=== PATIENT | female | born 1965 | race Caucasian/White ===

== ENCOUNTER 2018-01-26 10:16 | Emergency (ER) | payer OTHER ==
[~2018-01-26] VITALS: Ht 160 cm; Wt 61.2 kg
[~2018-01-26 10:16] MED LIST: ATEN50TA8 PO; CANA100T PO; LOVA20TA8 PO; METF1000 PO
[2018-01-26 10:23] VITALS: BP 167/79
--- NOTE | 2018-01-26 10:33 | NUR ---
Patient ambulated to ER bed 2
--- NOTE | 2018-01-26 10:44 | NUR ---
PATIENT PRESENTS TO ED WITH the chief c/o vaginal bleeding . PT STATES SHE WAS TAKING ELIQUIS FOR BLOOD CLOT ON LEFT LEG. SHE STARTED BLEEDING TWO DAYS AGO AND FEELING WEAK NOW. DENIES N/V/D; SKIN IS PINK/WARM/DRY; AAOX4 WITH EVEN AND STEADY GAIT; LUNGS CLEAR BL; HR EVEN AND REGULAR; PT DENIES ANY FEVER, CP, SOB, OR COUGH AT THIS TIME; PATIENT STATES PAIN OF 0/10 AT THIS TIME; VSS; PATIENT POSITIONED FOR COMFORT; HOB ELEVATED; BEDRAILS UP X2; BED DOWN. ER MD MADE AWARE OF PT STATUS.
[2018-01-26] MEDS ORDERED: NACL 0.9% 1,000 ML IV ONE (11:20)
--- NOTE | 2018-01-26 11:28 | NUR ---
US AT BEDSIDE.
[2018-01-26 12:19] LABS: BASOPHILS % (AUTO) 0.7 % (0.0-2.0); EOSINOPHILS # (AUTO) 0.1 K/uL (0-0.4); HEMATOCRIT 28.1 % (36-48); HEMOGLOBIN 9.6 g/dL (12.0-16.0); LYMPHOCYTES # (AUTO) 1.6 K/uL (2.5-16.5); LYMPHOCYTES % (AUTO) 22.3 % (20.5-51.1); MEAN CORPUSCULAR HEMOGLOBIN 32 pg (27-31); MEAN CORPUSCULAR HGB CONC 34 g/dL (33-37); MEAN CORPUSCULAR VOLUME 94.2 fL (80-94); MONOCYTES # (AUTO) 0.4 K/uL (0.8-1.0); MONOCYTES % (AUTO) 5.4 % (1.7-9.3); NEUTROPHILS % (AUTO) 70.6 % (42.2-75.2); PLATELET COUNT (AUTO) 239 K/uL (140-450); RED BLOOD CELL COUNT(AUTO) 2.98 MIL/uL (4.20-5.40); RED CELL DISTRIBUTION WIDTH 13.5 % (11.6-13.7); WHITE BLOOD COUNT (AUTO) 7.1 K/uL (4.8-10.8)
[2018-01-26 12:34] LABS: APPEARANCE,URINE HAZY (CLEAR); BILIRUBIN,URINE NEGATIVE (NEGATIVE); BLOOD, URINE 3+ (NEGATIVE); COLOR,URINE RED (YELLOW); LEUKOCYTE ESTERASE ,URINE NEGATIVE (NEGATIVE); NITRITE, URINE NEGATIVE (NEGATIVE); PH,URINE 5.5 (5.0-9.0); UGLUCOSE 3+ (NEGATIVE)
[2018-01-26 13:01] LABS: PROTHROMBIN TIME 9.4 secs (10.8-13.4)
[2018-01-26 13:02] LABS: RBC,URINE 50-80 /HPF (0-5); WBC,URINE 0-5 (RARE) /HPF (0-5)
[2018-01-26] MEDS ORDERED: NACL 0.9% 1,000 ML IV SCH ×2 (15:49→17:27)
[2018-01-26] MEDS ORDERED: HYDROmorphone PFS 2 MG/ML SYR IVP ONE (15:50)
[2018-01-26] MEDS ORDERED: ONDANSETRON 4 MG/2 ML VIAL IVP ONE (15:50)
[2018-01-26 16:14] LABS: CARBON DIOXIDE 26.3 mmol/L (21-32); CREATININE 0.6 mg/dL (0.6-1.3); POTASSIUM 4.3 mmol/L (3.5-5.1)
[2018-01-26 16:20] LABS: ALBUMIN 3.2 g/dL (3.4-5.0); TOTAL BILIRUBIN 0.4 mg/dL (0.0-1.0)
[2018-01-26] MEDS ORDERED: MORPHINE SULFATE 2 MG/ML SYR IVP PRN (17:30)
[2018-01-26] MEDS ORDERED: ACETAMINOPHEN 325 MG TAB PO PRN (17:30)
[2018-01-26] MEDS ORDERED: ONDANSETRON 4 MG/2 ML VIAL IVP PRN (17:30)
[2018-01-26] MEDS ORDERED: INSULIN LISPRO SLIDING SCALE 100 UNITS/ML VIAL SUBQ PRN (17:30)
[2018-01-26] MEDS ORDERED: LORazepam 2 MG/ML VIAL IVP PRN (17:30)
[2018-01-26] MEDS ORDERED: DEXTROSE 50% 50 ML SYR IVP PRN (17:30)
[2018-01-26] MEDS ORDERED: HYDROcodone/APAP 5/325 MG 1 TAB TAB PO PRN (17:30)
--- NOTE | 2018-01-26 18:05 | NUR ---
BACK FROM CT.
--- NOTE | 2018-01-26 19:25 | NUR ---
REPORT GIVEN TO COPY LATHE TENDER RN FOR CONTINUITY OF CARE. PT ON STABLE CONDITION.
[2018-01-26 20:44] VITALS: BP 124/74
[2018-01-26] MEDS ORDERED: BLOOD GLUCOSE MONITORING 1 DEV DEV FS SCH (21:00)
== END 2018-01-26 20:44 | disposition home or self-care (01) ==
LOC: MED 10:16 → MTU 17:32 → UNDOADMIN 17:32 → MED 20:44
DX: N95.0 Postmenopausal bleeding (principal); R19.09 Other intra-abdominal and pelvic swelling, mass and lump; E11.9 Type 2 diabetes mellitus without complications; I10 Essential (primary) hypertension; Z79.899 Other long term (current) drug therapy; Z79.84 Long term (current) use of oral hypoglycemic drugs
CPT/HCPCS: 36415; 74176; 76830; 76856; 80053; 81001; 81025; 82150; 83540; 83690; 84702; 85025; 85610; 85730; 86304; 99285; J1815; J7030; Q0092; J1170; J2405